=== PATIENT | male | born 2005 | race Caucasian/White ===

== ENCOUNTER 2024-05-11 18:19 | Emergency (ER) | payer OTHER ==
[~2024-05-11] VITALS: Ht 180.3 cm; Wt 85.0 kg
[2024-05-11 18:26] VITALS: PULSE 67
[2024-05-11 18:30] VITALS: BP 104/65; RESP 18; TEMP 98.1; O2SAT 98
[2024-05-11] MEDS ORDERED: KETOROLAC 15MG/ML VIAL IM ONE (20:30)
== END 2024-05-12 00:16 | disposition left against medical advice (07) ==
LOC: ER 18:19
DX: R60.0 Localized edema (principal); M79.674 Pain in right toe(s)
CPT/HCPCS: 73630; 99283

== ENCOUNTER 2025-07-26 12:28 | Emergency (ER) | payer MEDICAID ==
[~2025-07-26] VITALS: Ht 180.3 cm; Wt 89.0 kg
[2025-07-26 12:32] VITALS: TEMP 36.9; O2SAT 100
[2025-07-26] MEDS ORDERED: NAPR-681 MT (15:10)
[2025-07-26 16:03] VITALS: BP 122/78; PULSE 84; RESP 16; O2SAT 100
== END 2025-07-26 16:06 | disposition home or self-care (01) ==
LOC: ER 12:28
DX: M25.572 Pain in left ankle and joints of left foot (principal); Z79.1 Long term (current) use of non-steroidal anti-inflammatories (NSAID); W18.30XA Fall on same level, unspecified, initial encounter; Y93.89 Activity, other specified; Y92.89 Other specified places as the place of occurrence of the external cause; Y99.8 Other external cause status
CPT/HCPCS: 99283; 73610; A6449